=== PATIENT | male | born 1990 | race Caucasian/White ===

== ENCOUNTER 2018-08-13 08:24 | Day surgery (SDC) | payer BC ==
[2018-08-13] VITALS (9 sets, daily range): BP systolic 96–136; BP diastolic 47–86
[~2018-08-13] VITALS: Ht 175.3 cm; Wt 106.6 kg
[~2018-08-13 08:24] MED LIST: NKM
--- NOTE | 2018-08-13 08:37 | Pre-Procedure Note/Attestation ---
Pre-Procedure Note/Attestation Complete Prior to Procedure Procedure Narrative: Excision of back mass Indications for Procedure Pre-Operative Diagnosis: back mass Attestation I attest that I discussed the nature of the procedure; its benefits; risks and complications; and alternatives (and the risks and benefits of such alternatives ), prior to the procedure, with the patient (or the patient's legal retail customer service representative). I attest that, if there was a reasonable possibility of needing a blood transfusion, the patient (or the patient's legal retail customer service representative) was given the [facility] standardized written summary, pursuant to the [place] Blood Safety Act ([place] Health and Safety Code # 1645, as amended). I attest that I re-evaluated the patient just prior to the surgery and that there has been no change in the patient's H&P, except as documented below: Placido Grissom Aug 13, 2018 08:37
[2018-08-13] MEDS ORDERED: ceFAZolin sod 2 GM in D5W 110 ML IV ONE (08:45)
[2018-08-13] MEDS ORDERED: LR 1000ml 1,000 ML IVLG SCH (08:53)
--- NOTE | 2018-08-13 08:53 | Anethesia Preoperative Eval ---
Anesthesia Pre-op PMH/ROS General Date of Evaluation: Aug 13, 2018 Anesthesiologist: Beny ASA Score: ASA 2 Mallampati Score Class I : Soft palate, uvula, fauces, pillars visible Class II: Soft palate, uvula, fauces visible Class III: Soft palate, base of uvula visible Class IV: Only hard plate visible Mallampati Classification: Class III Surgeon: Jaciel Diagnosis: Back mass Surgical Procedure: Excision back mass Anesthesia History: none Family History: no anesthesia problems Allergies: Coded Allergies: No Known Allergies (Unverified , 08/09/18) Medications: see eMAR Patient NPO?: Yes NPO Date: Aug 12, 2018 NPO Time: 22:00 Past Medical History Cardiovascular: Reports: HTN; Denies: CAD, [place], valve dz, arrhythmia, other Pulmonary: Denies: asthma, COPD, POLLO, other Gastrointestinal/Genitourinary: Denies: GERD, CRI, ESRD, other Neurologic/Psychiatric: Denies: dementia, CVA, depression/anxiety, TIA, other Endocrine: Denies: DM, hypothyroidism, steroids, other HEENT: Denies: cataract (L), cataract (R), glaucoma, [place] (L), [place] (R), other Hematology/Immune: Denies: anemia, DVT, bleeding disorder, other Musculoskeletal/Integumentary: Denies: OA, RA, DJD, DDD, edema, other PSxH Narrative: Denies Anesthesia Pre-op Phys. Exam Physician Exam see chart Constitutional: NAD Cardiovascular: RRR Respiratory: CTA Airway Exam Mallampati Score: Class III MO: full ROM: limited Anesthesia Pre-op A/P Labs see chart Studies Pre-op Studies: EKG - sr Risk Assessment & Plan Assessment: ASA II Plan: MAC Status Change Before Surgery: No Pre-Antibiotics Drug: Sulma Brown MD Aug 13, 2018 08:53
[2018-08-13] MEDS ORDERED: Hydromorphone 0.5mg/0.5ml inj IVP PRN (09:00)
[2018-08-13] MEDS ORDERED: fentaNYL 100 mcg/2 mL IV PRN (09:00)
[2018-08-13] MEDS ORDERED: Ketorolac 30mg Inj IV PRN (09:00)
[2018-08-13] MEDS ORDERED: NS Irrig 1000ml ONE (09:00)
[2018-08-13] MEDS ORDERED: Midazolam 2mg/2ml Inj IVP PRN (09:00)
[2018-08-13] MEDS ORDERED: LR 1000ml ONE (09:00)
[2018-08-13] MEDS ORDERED: DiphenhydrAMINE 50mg/ml Inj IVP PRN (09:00)
[2018-08-13] MEDS ORDERED: Sterile Water Irrig 1000ml IRRIG ONE (09:00)
[2018-08-13] MEDS ORDERED: LORazepam Inj 2mg/ml 1ml IV PRN (09:00)
[2018-08-13] MEDS ORDERED: Bupivacaine w/Epi 0.25% 30ml Vial INJ ONE (09:03)
[2018-08-13] MEDS ORDERED: Bacitracin Oint 15gm Tube TOPIC ONE (09:03)
[2018-08-13] MEDS ORDERED: Lidocaine 1% MPF 10mg/ml 5ml ONE (09:13)
[2018-08-13] MEDS ORDERED: Propofol 200mg/20ml IV ONE (09:13)
[2018-08-13] MEDS ORDERED: Midazolam 2mg/2ml Inj ONE ×2 (09:13→09:26)
[2018-08-13] MEDS ORDERED: fentaNYL 100 mcg/2 mL IV ONE (09:13)
[2018-08-13] MEDS ORDERED: DiphenhydrAMINE 50mg/ml Inj ONE (09:29)
--- NOTE | 2018-08-13 10:05 | Immediate Post-Op Evaluation ---
Immediate Post-Op Evalulation Immediate Post-Op Evalulation Procedure: Excision right back mass Date of Evaluation: Aug 13, 2018 Time of Evaluation: 10:07 IV Fluids: 600 Blood Products: 0 Estimated Blood Loss: 0 Urinary Output: 0 Blood Pressure Systolic: 110 Blood Pressure Diastolic: 62 Pulse Rate: 79 Respiratory Rate: 16 O2 Sat by Pulse Oximetry: 99 Temperature (Fahrenheit): 97.4 Pain Score (1-10): 0 Nausea: No Vomiting: No Complications 0 Patient Status: awake, reacts, patent, none Hydration Status: adequate Drug: Ancecf 2g Given Within 1 Hr of Incision: Sulma Jimenez MD Aug 13, 2018 10:05
--- NOTE | 2018-08-13 10:06 | 48 Hour Post Anesthesia Eval ---
Post Anesthesia Evaluation Procedure: Excision right back mass Date of Evaluation: Aug 13, 2018 Airway: patent Nausea: No Vomiting: No Pain Intensity: 0 Hydration Status: adequate Cardiopulmonary Status: at baseline Mental Status/LOC: patient returned to baseline Post-Anesthesia Complications: 0 Follow-up care needed: ready to discharge Sulma Bourgeois MD Aug 13, 2018 10:06
--- NOTE | 2018-08-13 10:20 | Brief Operative Note ---
Immediate Post Operative Note Operative Note Pre-op Diagnosis: back mass Procedure: 1. excision of right back mass 2. mobilization of tissue for adjacent tissue transfer and multi-layer closure Post-op Diagnosis: right back mass / lipoma Surgeon: omari Anesthesiologist: shaan manning Anesthesia: local, MAC Specimen: yes Complications: none Condition: stable Fluids: see records Estimated Blood Loss: minimal Drains: none Implant(s) used?: No Placido Grissom Aug 13, 2018 10:20
[2018-08-13] MEDS ORDERED: HYDROmorphone 1mg/ml Carpuject SUBQ PRN (10:30)
[2018-08-13] MEDS ORDERED: Tylenol #3 tab (300mg/30mg) ORAL PRN (10:30)
[2018-08-13] MEDS ORDERED: HYDROcodone/Acetamin 5/325 tab ORAL PRN (10:30)
[2018-08-13] MEDS ORDERED: D5 1/2NS 1,000 ML IV SCH (10:30)
--- NOTE | 2018-08-13 16:15 | Operative Note - Dictated ---
DATE OF OPERATION: 08/13/2018 PREOPERATIVE DIAGNOSIS: Right back/trunk mass. POSTOPERATIVE DIAGNOSIS: Right back/trunk mass. OPERATION PERFORMED: 1. Excision of right back mass. 2. Mobilization of tissue for adjacent tissue transfer, multilayer closure. ATTENDING SURGEON: Placido Grissom M.D. DOG RACES MANAGER: None. ANESTHESIOLOGIST: Dr. Yasmeen Swan. ANESTHESIA: MAC plus local. ESTIMATED BLOOD LOSS: Minimal. IV FLUIDS: Please see anesthesia records. COMPLICATIONS: None. DRAINS: None. SPECIMENS: Back mass/lipoma sent to pathology for review. IMPLANTS: None. WOUND CLASSIFICATION: Class I. COUNTS: Sponge and needle count correct x2. ANTIBIOTICS: 2 g Ancef IV given 1 hour prior to cut time. INDICATIONS FOR PROCEDURE: This is a 27-year-old male who was referred to Dr. Grissom for evaluation of a symptomatic right back mass. The patient states he got it some time now and feels it may slowly be growing and also causing discomfort given his job description. 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 He can identify this mass causing him discomfort. The mass was palpable in the office and identified. An ultrasound was ordered, which identified abnormal subcutaneous tissue in the right back. Surgery was indicated and recommended. Risks, benefits, and alternatives to surgery including no surgery were discussed with the patient in detail, expressed understanding and consented for surgery. OPERATIVE NOTE: The patient was taken to the operating room and placed on the operating table in the prone position with all bony prominences well padded. SCDs were placed. Preoperative time-out was taken identifying the patient, procedure, and operative surgical staff. 2 g of Ancef IV were given one hour prior to cut time. The right back was clipped, prepped and draped in standard surgical fashion. The area of mass was identified preoperatively and marked. The patient was given sedation by the anesthesiologist and once made comfortable the area of the mass was identified and local anesthetic was infiltrated in the proposed skin incision. Approximately 5 cm skin incision was made overlying the mass and carried down through the dermis to the subcutaneous tissue with a #15 scalpel. Hemostasis was obtained with electrocautery. Once in the subcutaneous tissue with slow blunt dissection, the abnormal area of tissue was identified. There was noted to be an abnormal hard lipoma. The mass was circumferentially dissected out until the base was identified and ligated with a 3-0 Vicryl suture. Following this, the mass was divided and excised and placed on the back table. The mass was identified abutting near the fascia deep in the subcutaneous tissue. Once the mass was excised, the area of defect left was approximately 5 cm x 3 cm deep near to the fascia. This time the wound was irrigated and cleansed. Hemostasis was obtained using electrocautery. Following this, given the defect, a decision was made to mobilize adjacent soft subcutaneous tissue to allow for a multilayer closure without any defect to form abscess, seroma, or other abnormalities or further scar tissue. The subcutaneous tissue was from the inferior and superior aspect were dissected out and mobilized to the area of the defect. Following this, the mobilized tissue was brought together using 3-0 Vicryl sutures. Once the underlying subcutaneous layer was closed in appropriate fashion without any area of defect being identified, the dermis was reapproximated using 3-0 Vicryl sutures followed by closure of the skin incision using 4-0 Monocryl subcuticular running suture. Wound was inspected, noted to be hemostatic, clean without any open space or abnormal aesthetic appearance or area of defect. At this time, the skin incision was cleansed and skin glue and Steri-Strips were applied followed by dressings. The patient tolerated the procedure well, was taken to postanesthetic care unit in stable condition for planned discharge. Placido Grissom M.D. DR: JOE JOB#: [id number] CC: KAREN
== END 2018-08-13 11:30 | disposition home or self-care (01) ==
LOC: SUR 08:24
DX: D17.39 Benign lipomatous neoplasm of skin and subcutaneous tissue of other sites (principal); I10 Essential (primary) hypertension
CPT/HCPCS: 11406; 12032; J0690; J1200; J2250; J2704; J3010; 94003; 94150